=== PATIENT | female | born 1945 | race Caucasian/White ===

== ENCOUNTER 2017-11-29 19:12 | Emergency (ER) | payer MEDICARE ==
[~2017-11-29] VITALS: Ht 165.1 cm; Wt 65.8 kg
[2017-11-29 19:53] LABS: BASOPHILS # (AUTO) 0.1 /CMM (0.0-0.2); BASOPHILS % (AUTO) 0.6 % (0.0-2.0); EOSINOPHILS # (AUTO) 0.4 /CMM (0.0-0.7); EOSINOPHILS % (AUTO) 3.8 % (0.0-6.0); HEMATOCRIT 43 % (33-45); HEMOGLOBIN 14.9 g/dL (11.5-14.8); LYMPHOCYTES # (AUTO) 4.6 /CMM (0.8-4.8); LYMPHOCYTES % (AUTO) 47.7 % (20.0-44.0); MEAN CORPUSCULAR HEMOGLOBIN 34 PG (26.0-33.0); MEAN CORPUSCULAR HGB CONC 35 g/dl (31.0-36.0); MEAN CORPUSCULAR VOLUME 99 fL (82-100); MONOCYTES # (AUTO) 0.9 /CMM (0.1-1.30); MONOCYTES % (AUTO) 9.6 % (2.0-12.0); NEUTROPHILS # (AUTO) 3.8 /CMM (1.8-8.9); NEUTROPHILS % (AUTO) 38.3 % (43.0-81.0); PLATELET COUNT (AUTO) 224 /CMM (150-450); RDW COEFFICIENT OF VARIATION 12.4 (11.5-15.0); RED BLOOD CELL COUNT(AUTO) 4.36 MIL/uL (4.0-5.2); WHITE BLOOD COUNT (AUTO) 9.8 K/uL (4.3-11.0)
[2017-11-29] MEDS ORDERED: IV NS 0.9% 500 ML BAG IV ONE (20:00)
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
[2017-11-29 20:03] LABS: CALCIUM, SERUM 9.1 mg/dL (8.5-10.1); CARBON DIOXIDE 23 mmol/L (21-32); CHLORIDE 99 mmol/L (98-107); CREATININE 0.9 mg/dL (0.6-1.3); GLUCOSE 112 mg/dL (74-106); POTASSIUM 4.7 mmol/L (3.5-5.1); SODIUM SERUM 135 mmol/L (136-145); UREA NITROGEN, BLOOD 21 mg/dL (7-18)
[2017-11-29 20:10] LABS: ALANINE AMINOTRANSFERASE 25 U/L (12-78); ALBUMIN 3.4 g/dL (3.4-5.0); ALCOHOL, BLOOD 378 mg/dL (0-0); ALKALINE PHOSPHATASE 88 U/L (46-116); ASPARTATE AMINOTRANSFERASE 34 U/L (15-37); BILIRUBIN,TOTAL 0.3 mg/dL (0.2-1.0); TOTAL PROTEIN, SERUM 7.6 g/dL (6.4-8.2)
[2017-11-29 20:11] LABS: ACETAMINOPHEN < 2 ug/ml (10-30); SALICYLATE 1.2 mg/dL (2.8-20.0)
[2017-11-29] MEDS ORDERED: ONDANSETRON HCL/PF - ER 4 MG/2 ML VIAL IV ONE (20:30)
[2017-11-29] MEDS ORDERED: ONDANSETRON HCL/PF 4 MG/2 ML VIAL ONE (20:57)
--- NOTE | 2017-11-29 23:15 | NUR ---
PT SLEEPING, BREATHING LOUDLY, EVEN/UNLABORED, ARROUSABLE TO VOICE, A/O X 3, NO C/O PAIN AT THIS TIME, NAD NOTED, WILL CONTINUE TO MONITOR
--- NOTE | 2017-11-30 00:35 | NUR ---
PT SLEEPING, ARROUSABLE TO VOICE, A/O X 2, NO C/O PAIN, NAD NOTED,
--- NOTE | 2017-11-30 01:30 | NUR ---
PT AWAKE A/O X 4, BREATHING UNLABORED, AMBULATED THROUGHOUT ER, STEADY GAIT, PT PROVIDED WITH CLOTHING, AND TAXI COIN FOR RIDE HOME.
--- NOTE | 2017-11-30 01:35 | NUR ---
IV D/C INTACT, BANDAGE APPLIED
== END 2017-11-30 02:21 | disposition home or self-care (01) ==
LOC: ER 19:16
DX: F10.129 Alcohol abuse with intoxication, unspecified (principal); G31.89 Other specified degenerative diseases of nervous system
CPT/HCPCS: 36415; 70450; 80048; 80076; 80329; 85025; 96374; 99285; A4606 ×2; G0480 ×2; J2405 ×2; J7040; Z7610 ×2